=== PATIENT | male | born 1950 | race African-American/Black ===

== ENCOUNTER 2018-06-11 11:09 | Emergency (ER) | payer OTHER ==
[~2018-06-11] VITALS: Ht 177.8 cm; Wt 137.0 kg
[~2018-06-11 11:09] MED LIST: NAPR220T66; VICODIN
[2018-06-11] MEDS ORDERED: MORPHINE SULFATE 4 MG/ML CPJ (NOT FOR IM USE) IV STA (12:07)
[2018-06-11 13:23] LABS: BASOPHILS % 0.3 % (0.0-2.0); EOSINOPHILS % 0.1 % (0.0-5.0); HEMATOCRIT. 45.4 % (42.0-52.0); HEMOGLOBIN. 15.2 g/dL (14.0-18.0); LYMPHOCYTES % 11.6 % (20.0-50.0); MEAN CORPUSCULAR HEMOGLOBIN 30.6 pg (28.0-32.0); MEAN CORPUSCULAR VOLUME 91.2 fL (80.0-94.0); MEAN PLATELET VOLUME 9.2 fl (7.4-10.4); MONOCYTES % 12.3 % (2.0-8.0); NEUTROPHILS % 75.7 % (40.0-76.0); PLATELET 161 x1000/uL (130-400); RED BLOOD CELL COUNT 4.98 mill/uL (4.7-6.1); RED CELL DISTRIBUTION WIDTH 13.6 % (11.6-14.6)
[2018-06-11] MEDS ORDERED: MORPHINE SULFATE 4 MG/ML CPJ (NOT FOR IM USE) IV ONE (13:30)
[2018-06-11 13:31] LABS: CHLORIDE 101 mEq/L (98-107)
[2018-06-11 13:36] LABS: INR 3.8; PROTHROMBIN TIME 37.8 sec (9.1-11.1)
[2018-06-11] MEDS ORDERED: AMPICILLIN SOD/SULBACTAM NA 3 G in SODIUM CHLORIDE 0.9% 100 ML IV SCH (13:45)
[2018-06-11] MEDS ORDERED: LIDOCAINE HCL 1% 20ML VIAL (Pyxis) INJ INFIL ONE (14:15)
[2018-06-11 16:46] VITALS: BP 117/81
== END 2018-06-11 18:29 | disposition short-term general hospital (02) ==
LOC: ER 12:19 → CANBEDREQ 18:31
DX: M79.642 Pain in left hand (principal); M32.9 Systemic lupus erythematosus, unspecified; Z86.718 Personal history of other venous thrombosis and embolism; F17.200 Nicotine dependence, unspecified, uncomplicated; Z79.899 Other long term (current) drug therapy
CPT/HCPCS: 20605; 71045; 73130; 80053; 84484; 85025; 85610; 85651; 86140; 87070; 87205; 93005; 93971; 96365; 96375; 96376; 99285; J0295; J2270; J3490; J7050

== ENCOUNTER 2019-09-26 11:45 | Emergency (ER) | payer OTHER ==
[~2019-09-26] VITALS: Ht 180.3 cm; Wt 130.0 kg
[2019-09-26 15:29] LABS: PROTHROMBIN TIME 80.3 sec (9.6-11.0)
[2019-09-26 16:08] LABS: INR 8.6
[2019-09-26] MEDS ORDERED: AMOXICILLIN/POTASSIUM CLAVULANATE 875/125MG TAB PO ONE (18:15)
[2019-09-26] MEDS ORDERED: HYDROCODONE/ACETAMINOPHEN 10/325MG TABLET PO ONE (18:15)
[2019-09-26 18:37] LABS: BASOPHILS % 0.2 % (0.0-2.0); EOSINOPHILS % 0.1 % (0.0-5.0); HEMOGLOBIN. 11.8 g/dL (14.0-18.0); LYMPHOCYTES % 7.6 % (20.0-50.0); MEAN CORPUSCULAR HEMOGLOBIN 28.2 pg (28.0-32.0); MEAN CORPUSCULAR VOLUME 86.2 fL (80.0-94.0); MONOCYTES % 9.5 % (2.0-8.0); NEUTROPHILS % 82.6 % (40.0-76.0); PLATELET 324 x1000/uL (130-400); RED BLOOD CELL COUNT 4.17 mill/uL (4.7-6.1); RED CELL DISTRIBUTION WIDTH 14.5 % (11.6-14.6)
[2019-09-26 20:15] VITALS: BP 132/72
== END 2019-09-26 20:32 | disposition home or self-care (01) ==
LOC: ER 12:49
DX: T45.511A Poisoning by anticoagulants, accidental (unintentional), initial encounter (principal); Y92.89 Other specified places as the place of occurrence of the external cause; L02.611 Cutaneous abscess of right foot
CPT/HCPCS: 36415; 93005; 93971; 99284